=== PATIENT | male | born 1980 | race Caucasian/White ===

== ENCOUNTER 2017-10-14 10:16 | Emergency (ER) | payer OTHER ==
[~2017-10-14] VITALS: Ht 175.3 cm; Wt 76.0 kg
[2017-10-14 10:46] LABS: BASOPHILS % (AUTO) 0.1 % (0-1); EOSINOPHILS % (AUTO) 0 % (0-6); HEMATOCRIT 49.6 % (42.0-52.0); HEMOGLOBIN 17.3 g/dl (14.0-17.9); LYMPHOCYTES # (AUTO) 0.9 X10'3 (1.1-4.8); LYMPHOCYTES % (AUTO) 7.3 % (21-51); MEAN CORPUSCULAR HEMOGLOBIN 31.2 PG (27.0-31.0); MEAN CORPUSCULAR HGB CONC 34.8 % (33.0-36.5); MEAN CORPUSCULAR VOLUME 89.8 FL (78-98); MONOCYTES # (AUTO) 0.4 X10'3 (0-0.9); MONOCYTES % (AUTO) 3.5 % (2-12); NEUTROPHILS # (AUTO) 11.3 X10'3 (1.8-7.7); NEUTROPHILS % (AUTO) 89.1 % (42-75); PLATELET COUNT 292 X10'3 (140-440); RED BLOOD COUNT 5.53 X10'6 (4.70-6.10); RED CELL DISTRIBUTION WIDTH 13.5 % (11.5-14.5); WHITE BLOOD COUNT 12.6 X10'3 (4.5-11.0)
[2017-10-14 10:59] LABS: ALANINE AMINOTRANSFERASE 38 U/L (12-78); ALBUMIN 4.1 G/DL (3.4-5.0); ALKALINE PHOSPHATASE 88 IU/L (46-116); ANION GAP 15 (8-16); ASPARTATE AMINO TRANSFERASE 19 U/L (10-37); BILIRUBIN,TOTAL 1.2 MG/DL (0.1-1.0); BLOOD UREA NITROGEN 16 MG/DL (7-18); BUN/CREATININE RATIO 12.6 (5.4-32.0); CALCIUM 9.4 MG/DL (8.5-10.1); CHLORIDE 100 MMOL/L (99-107); CREATININE 1.27 MG/DL (0.60-1.10); GLUCOSE 124 MG/DL (70-104); POTASSIUM 3.4 MMOL/L (3.5-5.1); SODIUM 137 MMOL/L (135-145); TOTAL PROTEIN 8.4 G/DL (6.4-8.2); eGFR 64 ML/MIN
[2017-10-14] MEDS ORDERED: normal saline 1000ML IV soln IVB ONE (12:05)
[2017-10-14] MEDS ORDERED: proCHLORperazine 10 MG/2 ml inj IV ONE (12:05)
[2017-10-14] MEDS ORDERED: ONDA4TAB6 PO (12:06)
[2017-10-14 13:08] VITALS: BP 144/87
== END 2017-10-14 13:10 | disposition home or self-care (01) ==
LOC: ER 10:17
DX: R11.10 Vomiting, unspecified (principal); F12.90 Cannabis use, unspecified, uncomplicated; Z88.2 Allergy status to sulfonamides; Z79.899 Other long term (current) drug therapy
CPT/HCPCS: 36415; 80053; 85025; 96361; 96374; 99284; J0780; J7030

== ENCOUNTER 2023-11-30 13:04 | Emergency (ER) | payer OTHER ==
[~2023-11-30] VITALS: Ht 175.3 cm; Wt 68.2 kg
[~2023-11-30 13:04] MED LIST: ONDA4TAB6 PO
[2023-11-30 13:06] VITALS: BP 129/81; PULSE 114; TEMP 97.7; O2SAT 98
[2023-11-30] MEDS ORDERED: NIRM1TAB9 PO (14:32)
[2023-11-30 14:50] VITALS: RESP 18
== END 2023-11-30 14:51 | disposition home or self-care (01) ==
LOC: ER 13:05
DX: U07.1 COVID-19 (principal); F12.90 Cannabis use, unspecified, uncomplicated; Z88.2 Allergy status to sulfonamides; Z79.899 Other long term (current) drug therapy
CPT/HCPCS: 36415; 87502; 87503; 87811; 99283

== ENCOUNTER 2024-07-19 18:35 | Emergency (ER) | payer OTHER ==
[~2024-07-19] VITALS: Ht 177.8 cm; Wt 73.0 kg
[~2024-07-19 18:35] MED LIST changes: +NIRM1TAB9 PO
[2024-07-19 18:46] VITALS: BP 125/79; PULSE 83; RESP 16; O2SAT 97
[2024-07-19 21:06] VITALS: TEMP 98.2
== END 2024-07-19 21:07 | disposition home or self-care (01) ==
LOC: ER 18:36
DX: M25.532 Pain in left wrist (principal); F12.90 Cannabis use, unspecified, uncomplicated; Z88.2 Allergy status to sulfonamides; Z79.899 Other long term (current) drug therapy
CPT/HCPCS: 29125; 73110; 99283